=== PATIENT | female | born 1960 | race Caucasian/White ===

== ENCOUNTER 2017-05-23 14:44 | Observation (INO) | payer BC ==
[~2017-05-23] VITALS: Ht 157.5 cm; Wt 90.5 kg
[2017-05-23 16:39] LABS: HEMATOCRIT 40.6 % (36.0-46.0); MCH 27.2 PG (29.0-34.0); MCHC 31.5 G/DL (30.0-36.0); MCV 86.2 FL (83-99); PLATELET COUNT 280 K/uL (156-360); RBC DIS.WIDTH-CV 13.8 % (11.8-14.6); RBC DIS.WIDTH-SD 43.7 % (39-53); RED BLOOD COUNT 4.71 M/uL (3.80-5.20); WHITE BLOOD COUNT 8.6 K/uL (4.1-10.2)
[2017-05-23 16:50] LABS: CHLORIDE 108 mEq/L (99-109); POTASSIUM 3.7 mEq/L (3.7-5.4); SODIUM 142 mEq/L (136-147)
[2017-05-23 16:51] LABS: GLUCOSE 88 mg/dL (70-99)
[2017-05-23 16:53] LABS: ANION GAP 8 MEQ/L (2-14)
[2017-05-23 16:55] LABS: GFR ESTIMATE (CALCULATED) > 59 mL/min/
[2017-05-23 16:56] LABS: UREA NITROGEN (BUN) 19 mg/dL (9-23)
[2017-05-23 17:02] LABS: TROP-I INTERPRETATION NEGATIVE; TROPONIN-I < 0.01 ng/mL (0.0-0.30)
[2017-05-23] MEDS ORDERED: PREDNISONE10 MG PO ×2 (18:03→18:04)
[2017-05-23] MEDS ORDERED: PROTONIX40 MG PO (18:05)
[2017-05-23] MEDS ORDERED: CEFTIN500 MG PO (18:05)
[2017-05-23] MEDS ORDERED: ALPRAZOLAM0.5 MG PO (18:05)
[2017-05-23] MEDS ORDERED: PAROXETINE HCL10 MG PO (18:05)
[2017-05-23] MEDS ORDERED: PROAIR HFA8.5 GM IH (18:05)
[2017-05-23] MEDS ORDERED: ADVIL,NUPRIN,M200 MG PO (18:05)
[2017-05-23 18:19] LABS: D-DIMER ELISA 0.21 mg/L FEU (< 0.57)
[2017-05-23 22:22] VITALS: BP 139/74
[2017-05-23 23:19] LABS: TROP-I INTERPRETATION NEGATIVE; TROPONIN-I < 0.01 ng/mL (0.0-0.30)
[2017-05-24 04:32] VITALS: BP 123/64
[2017-05-24 05:47] LABS: MCH 27.2 PG (29.0-34.0); MCHC 31.3 G/DL (30.0-36.0); MCV 86.9 FL (83-99); PLATELET COUNT 264 K/uL (156-360); RBC DIS.WIDTH-CV 13.7 % (11.8-14.6); RBC DIS.WIDTH-SD 43.7 % (39-53); RED BLOOD COUNT 4.49 M/uL (3.80-5.20); WHITE BLOOD COUNT 7.2 K/uL (4.1-10.2)
[2017-05-24 06:09] LABS: ALKALINE PHOSPHATASE 90 IU/L (3-129); ANION GAP 10 MEQ/L (2-14); CHLORIDE 109 MEQ/L (99-109); GFR ESTIMATE (CALCULATED) > 59 mL/min/; POTASSIUM 4.3 MEQ/L (3.7-5.4); SAMPLE HEMOLYSIS CHECK 0; SAMPLE ICTERIC CHECK 0; SAMPLE LIPEMIA CHECK 0; SODIUM 142 MEQ/L (136-147); TOTAL BILIRUBIN 0.4 MG/DL (0.0-1.0); UREA NITROGEN (BUN) 19 mg/dL (9-23)
[2017-05-24 06:12] LABS: TROP-I INTERPRETATION NEGATIVE; TROPONIN-I < 0.01 ng/mL (0.0-0.30)
[2017-05-24 06:39] LABS: GLUCOSE 178 mg/dL (70-99)
[2017-05-24 08:59] VITALS: BP 131/69
[2017-05-24] MEDS ORDERED: ASPIR-LOW81 MG PO (10:17)
== END 2017-05-24 13:13 | disposition home or self-care (01) ==
LOC: EME 14:44 → EDOF 19:34 → 5WEST 19:34
PROVIDERS: Emergency Medicine; Internal Medicine
DX: R07.2 Precordial pain (principal); J30.9 Allergic rhinitis, unspecified; F32.9 Major depressive disorder, single episode, unspecified; E78.00 Pure hypercholesterolemia, unspecified; Z82.49 Family history of ischemic heart disease and other diseases of the circulatory system; E66.9 Obesity, unspecified; Z68.36 Body mass index [BMI] 36.0-36.9, adult
CPT/HCPCS: 71020; 80048; 80053; 84484; 85027; 85379; 93005; 99202; 99281; 99285; G0378; J7512

== ENCOUNTER 2017-07-02 09:52 | Day surgery (SDC) | payer BC ==
[~2017-07-02] VITALS: Ht 157.5 cm; Wt 89.8 kg
[~2017-07-02 09:52] MED LIST: ADVIL,NUPRIN,M200 MG PO; ALPRAZOLAM0.5 MG PO; ASPIR-LOW81 MG PO; CEFTIN500 MG PO; PAROXETINE HCL10 MG PO; PREDNISONE10 MG PO; PROAIR HFA8.5 GM IH; PROTONIX40 MG PO
[2017-07-02 10:42] LABS: POINT-OF-CARE METER ID UU13113696
== END 2017-07-02 17:06 | disposition home or self-care (01) ==
LOC: CATH 09:52
PROVIDERS: Internal Medicine Cardiovascular Disease
DX: I25.10 Atherosclerotic heart disease of native coronary artery without angina pectoris (principal); I42.9 Cardiomyopathy, unspecified; I34.0 Nonrheumatic mitral (valve) insufficiency; I35.1 Nonrheumatic aortic (valve) insufficiency; I27.2 Other secondary pulmonary hypertension; E11.9 Type 2 diabetes mellitus without complications; E66.9 Obesity, unspecified; E78.5 Hyperlipidemia, unspecified; R06.09 Other forms of dyspnea; R07.89 Other chest pain; Z87.891 Personal history of nicotine dependence
CPT/HCPCS: 82948; C1769; C1887; J1644; J2250; J3010

== ENCOUNTER 2017-11-22 00:28 | Emergency (ER) | payer BC ==
[~2017-11-22] VITALS: Ht 157.5 cm; Wt 85.2 kg
[2017-11-22 00:51] LABS: APPEARANCE CLOUDY ((CLEAR)); BILIRUBIN NEGATIVE; BLOOD LARGE; COLOR YELLOW ((YELLOW)); GLUCOSE (STRIP) NEGATIVE; KETONES 5; LEUKOCYTES SMALL; NITRITE NEGATIVE; PROTEIN (STRIP) 30; SPECIFIC GRAVITY 1.029 (1.000-1.030)
[2017-11-22 01:12] LABS: HEMATOCRIT 35.7 % (36.0-46.0); HEMOGLOBIN 11.2 G/DL (11.9-15.5); MCH 25.6 PG (29.0-34.0); MCHC 31.4 G/DL (30.0-36.0); MCV 81.5 FL (83-99); PLATELET COUNT 295 K/uL (156-360); RBC DIS.WIDTH-CV 14.9 % (11.8-14.6); RBC DIS.WIDTH-SD 43.8 % (39-53); RED BLOOD COUNT 4.38 M/uL (3.80-5.20); WHITE BLOOD COUNT 8.8 K/uL (4.1-10.2)
[2017-11-22 01:16] LABS: EPITHELIAL CELLS 2+ /HPF; MUCUS RARE /LPF; RED BLOOD CELLS 30-40 /HPF (0-5)
[2017-11-22 01:17] LABS: BACTERIA 1+ /HPF; UCUL ADDED? YES
[2017-11-22 01:20] LABS: ALBUMIN 3.7 g/dL (3.2-4.8); CHLORIDE 103 mEq/L (99-109); POTASSIUM 4.1 mEq/L (3.7-5.4); SODIUM 138 mEq/L (136-147)
[2017-11-22 01:22] LABS: GLUCOSE 163 mg/dL (70-99); TOTAL PROTEIN 7.4 g/dL (6.4-8.3)
[2017-11-22 01:24] LABS: TOTAL BILIRUBIN 0.4 mg/dL (0.0-1.0)
[2017-11-22 01:26] LABS: ALKALINE PHOSPHATASE 117 IU/L (3-129); CREATININE 1.4 mg/dL (0.6-1.3); GFR ESTIMATE (CALCULATED) 41 mL/min/
[2017-11-22 01:27] LABS: AST (GOT) 17 IU/L (2-34); UREA NITROGEN (BUN) 22 mg/dL (9-23)
[2017-11-22 01:29] LABS: ALT (GPT) 16 IU/L (3-49); LIPASE 27 U/L (1.0-51.0)
[2017-11-22] MEDS ORDERED: ZOFRAN ODT4 MG PO (03:12)
[2017-11-22] MEDS ORDERED: FLOMAX0.4 MG PO (03:12)
[2017-11-22] MEDS ORDERED: PERCOCET 5/31 TABLET PO (03:12)
[2017-11-22 04:00] VITALS: BP 103/64
== END 2017-11-22 04:24 | disposition home or self-care (01) ==
LOC: EME 00:28
DX: N13.2 Hydronephrosis with renal and ureteral calculous obstruction (principal); K21.9 Gastro-esophageal reflux disease without esophagitis; F41.9 Anxiety disorder, unspecified; F32.9 Major depressive disorder, single episode, unspecified; Z79.82 Long term (current) use of aspirin; Z87.891 Personal history of nicotine dependence; Z95.2 Presence of prosthetic heart valve; Z85.9 Personal history of malignant neoplasm, unspecified; Z88.5 Allergy status to narcotic agent
CPT/HCPCS: 74176; 80053; 81003; 83690; 85027; 87086; 99281; 99284; J1885